=== PATIENT | male | born 1965 | race Two or more races ===

== ENCOUNTER 2017-10-20 13:23 | Observation (INO) | payer BC, OTHER ==
[~2017-10-20] VITALS: Ht 175.3 cm; Wt 84.0 kg
[~2017-10-20 13:23] MED LIST: ASPI-516 CHEW; LISI-519 PO; ROSU20 PO
[2017-10-20 13:24] VITALS: BP 154/67; PULSE 78; TEMP 97.7; O2SAT 98
[2017-10-20] MEDS ORDERED: SODIUM CHLOR 0.9% 1000 ML INJ 1,000 ML IV ONE (13:52)
--- NOTE | 2017-10-20 13:52 | PD ---
HPI Chief Complaint: General Weakness Time Seen by Provider: 13:42 Travel History International Travel<30 days: No Contact w/Intl Traveler<30days: No Traveled to known affect area: No History of Present Illness HPI 51-year-old male with history of hypertension presents to emergency department for evaluation of her palpitations, "skipped beats", and sensation of lightheadedness. Patient was seen and evaluated in [facility] a last evening for similar symptoms except he was not having significant lightheadedness at that time. He was discharged follow-up with a simonizer for Holter monitor placement. Patient states that the day he has had more frequent skipped beats and he is experiencing lightheadedness. He has not actually syncopized. Denies any pain. Denies any nausea. Occasional shortness of breath. Patient has no other symptoms reported this time. PFSH Past Medical History Heart Rhythm Problems: Yes (SKIPPED BEATS) High Cholesterol: Yes Diminished Hearing: No Hypertension: Yes Inguinal Hernia: Yes Past Surgical History Cholecystectomy: Yes Social History Alcohol Use: No Tobacco Use: No Substance Use: No Allergies-Medications (Allergen,Severity, Reaction): Coded Allergies: No Known Allergies (Unverified , 10/20/17) Reported Meds & Prescriptions Reported Meds & Active Scripts Active Reported Aspirin 81 Mg Chew 81 Mg CHEW DAILY Crestor (Rosuvastatin Calcium) 20 Mg Tab 20 Mg PO DAILY Lisinopril 5 Mg Tab 5 Mg PO DAILY Review of Systems Except as stated in HPI: all other systems reviewed are Neg Physical Exam Narrative GENERAL: Well-nourished male patient, ambulatory and in no acute distress. SKIN: Focused skin assessment warm/dry. HEAD: Atraumatic. Normocephalic. EYES: Pupils equal and round. No scleral icterus. No injection or drainage. ENT: No nasal bleeding or discharge. Mucous membranes pink and moist. NECK: Trachea midline. No JVD. CARDIOVASCULAR: Regular rate and rhythm. No murmur appreciated. RESPIRATORY: No accessory muscle use. Clear to auscultation. Breath sounds equal bilaterally. GASTROINTESTINAL: Abdomen soft, non-tender, nondistended. Hepatic and splenic margins not palpable. MUSCULOSKELETAL: No obvious deformities. No clubbing. No cyanosis. No edema. NEUROLOGICAL: Awake and alert. No obvious cranial nerve deficits. Motor grossly within normal limits. Normal speech. PSYCHIATRIC: Appropriate mood and affect; insight and judgment normal. Data Data Last Documented VS Vital Signs Date Time Temp Pulse Resp B/P (MAP) Pulse Ox O2 Delivery O2 Flow Rate FiO2 10/20/17 15:20 71 120/63 (82) 59 117/80 (92) 70 119/83 (95) 10/20/17 14:14 96 Room Air 10/20/17 13:24 97.7 Orders Orders Electrocardiogram (10/20/17 13:52) Basic Metabolic Panel (Bmp) (10/20/17 13:52) Complete Blood Count With Diff (10/20/17 13:52) Ckmb (Isoenzyme) Profile (10/20/17 13:52) Troponin I (10/20/17 13:52) Act Partial Throm Time (Ptt) (10/20/17 13:52) Prothrombin Time / Inr (Pt) (10/20/17 13:52) Ecg Monitoring (10/20/17 13:52) Iv Access Insert/Monitor (10/20/17 13:52) Oximetry (10/20/17 13:52) Sodium Chloride 0.9% Flush (Ns Flush) (10/20/17 14:00) Sodium Chlor 0.9% 1000 Ml Inj (Ns 1000 M (10/20/17 13:52) Orthostatic Vital Signs (10/20/17 13:52) CKMB (10/20/17 14:06) CKMB% (10/20/17 14:06) Admit Order (Ed Use Only) (10/20/17 15:21) Labs Laboratory Tests Test 10/20/17 14:06 White Blood Count 6.2 TH/MM3 Red Blood Count 4.85 MIL/MM3 Hemoglobin 15.1 GM/DL Hematocrit 44.4 % Mean Corpuscular Volume 91.5 FL Mean Corpuscular Hemoglobin 31.1 PG Mean Corpuscular Hemoglobin Concent 33.9 % Red Cell Distribution Width 13.0 % Platelet Count 197 TH/MM3 Mean Platelet Volume 8.2 FL Neutrophils (%) (Auto) 50.5 % Lymphocytes (%) (Auto) 34.7 % Monocytes (%) (Auto) 10.7 % Eosinophils (%) (Auto) 3.6 % Basophils (%) (Auto) 0.5 % Neutrophils # (Auto) 3.1 TH/MM3 Lymphocytes # (Auto) 2.1 TH/MM3 Monocytes # (Auto) 0.7 TH/MM3 Eosinophils # (Auto) 0.2 TH/MM3 Basophils # (Auto) 0.0 TH/MM3 CBC Comment DIFF FINAL Differential Comment Prothrombin Time 10.7 SEC Prothromb Time International Ratio 1.1 RATIO Activated Partial Thromboplast Time 28.5 SEC Blood Urea Nitrogen 15 MG/DL Creatinine 1.02 MG/DL Random Glucose 113 MG/DL Calcium Level 8.6 MG/DL Sodium Level 138 MEQ/L Potassium Level 4.2 MEQ/L Chloride Level 105 MEQ/L Carbon Dioxide Level 25.2 MEQ/L Anion Gap 8 MEQ/L Estimat Glomerular Filtration Rate 76 ML/MIN Total Creatine Kinase 194 U/L Creatine Kinase MB 1.2 NG/ML Troponin I LESS THAN 0.02 NG/ML MDM Medical Decision Making Medical Screen Exam Complete: Yes Emergency Medical Condition: Yes Medical Record Reviewed: Yes Differential Diagnosis Syncope versus near-syncope versus electrolyte abnormality versus arrhythmia Narrative Course 51-year-old male presents to emergency department for evaluation. Patient appears without distress. His vital signs are stable. On the monitor patient is having frequent PVCs, however EKG is normal sinus rhythm. It is reviewed by my attending physician. Laboratory Tests Test 10/20/17 14:06 White Blood Count 6.2 TH/MM3 Red Blood Count 4.85 MIL/MM3 Hemoglobin 15.1 GM/DL Hematocrit 44.4 % Mean Corpuscular Volume 91.5 FL Mean Corpuscular Hemoglobin 31.1 PG Mean Corpuscular Hemoglobin Concent 33.9 % Red Cell Distribution Width 13.0 % Platelet Count 197 TH/MM3 Mean Platelet Volume 8.2 FL Neutrophils (%) (Auto) 50.5 % Lymphocytes (%) (Auto) 34.7 % Monocytes (%) (Auto) 10.7 % Eosinophils (%) (Auto) 3.6 % Basophils (%) (Auto) 0.5 % Neutrophils # (Auto) 3.1 TH/MM3 Lymphocytes # (Auto) 2.1 TH/MM3 Monocytes # (Auto) 0.7 TH/MM3 Eosinophils # (Auto) 0.2 TH/MM3 Basophils # (Auto) 0.0 TH/MM3 CBC Comment DIFF FINAL Differential Comment Prothrombin Time 10.7 SEC Prothromb Time International Ratio 1.1 RATIO Activated Partial Thromboplast Time 28.5 SEC Blood Urea Nitrogen 15 MG/DL Creatinine 1.02 MG/DL Random Glucose 113 MG/DL Calcium Level 8.6 MG/DL Sodium Level 138 MEQ/L Potassium Level 4.2 MEQ/L Chloride Level 105 MEQ/L Carbon Dioxide Level 25.2 MEQ/L Anion Gap 8 MEQ/L Estimat Glomerular Filtration Rate 76 ML/MIN Total Creatine Kinase 194 U/L Creatine Kinase MB 1.2 NG/ML Troponin I LESS THAN 0.02 NG/ML Lab work is reviewed without acute concern. I discussed the patient my attending physician. Patient will benefit from 23 observation for further evaluation of near-syncope. PAtient is in agreement with this plan of care. Diagnosis Primary Impression: Near syncope Additional Impression: Palpitation Admitting Information Admitting Physician Requests: Observation Condition: Stable Irma Rucker Oct 20, 2017 13:51
[2017-10-20] MEDS ORDERED: SODIUM CHLORIDE 0.9% FLUSH 10 ML FLUSH IVF PRN (14:00)
[2017-10-20 14:14] VITALS: O2SAT 96
[2017-10-20 14:25] LABS: AUTOMATED NEUTROPHIL # 3.1 TH/MM3 (1.8-7.7); BASOPHIL % 0.5 % (0.0-2.0); EOSINOPHIL # 0.2 TH/MM3 (0-0.4); EOSINOPHIL % 3.6 % (0.0-4.0); HEMATOCRIT 44.4 % (39.0-51.0); HEMOGLOBIN 15.1 GM/DL (13.0-17.0); LYMPH % 34.7 % (9.0-44.0); LYMPHOCYTE # 2.1 TH/MM3 (1.0-4.8); MEAN CELL VOLUME 91.5 FL (80.0-100.0); MEAN CORPUSCULAR HEMOGLOBIN 31.1 PG (27.0-34.0); MEAN CORPUSCULAR HGB CONC 33.9 % (32.0-36.0); MEAN PLATELET VOLUME 8.2 FL (7.0-11.0); MONO % 10.7 % (0.0-8.0); MONOCYTE # 0.7 TH/MM3 (0-0.9); NEUT % 50.5 % (16.0-70.0); PLATELET COUNT 197 TH/MM3 (150-450); RED BLOOD COUNT 4.85 MIL/MM3 (4.50-5.90); WHITE BLOOD COUNT 6.2 TH/MM3 (4.0-11.0)
[2017-10-20 14:33] LABS: INTERNATIONAL NORMALIZED RATIO 1.1 RATIO; PROTHROMBIN TIME - PATIENT 10.7 SEC (9.8-11.6)
[2017-10-20 14:41] LABS: BICARBONATE 25.2 MEQ/L (21.0-32.0); BLOOD UREA NITROGEN 15 MG/DL (7-18); CALCIUM 8.6 MG/DL (8.5-10.1); CHLORIDE 105 MEQ/L (98-107); CREATININE 1.02 MG/DL (0.60-1.30); GLOMERULAR FILTRATION RATE 76 ML/MIN (>89); GLUCOSE,RANDOM 113 MG/DL (74-106); SODIUM (NA) 138 MEQ/L (136-145)
[2017-10-20 14:46] LABS: TROPONIN I LESS THAN 0.02 NG/ML (0.02-0.05)
[2017-10-20 15:20] VITALS: BP_SYST 117; BP_SYST 119; BP_SYST 120; BP_DIAS 63; BP_DIAS 80; BP_DIAS 83
--- NOTE | 2017-10-20 15:31 | HHI.HP ---
[facility] Service Family Medicine Primary Care Physician Epifanio Acuña MD Admission Diagnosis near syncope; palpitations Diagnoses: Chief Complaint: weakness International Travel<30 Days: No Contact w/Intl Traveler<30days: No History of Present Illness 50-year-old male with history of hypertension, hyperlipidemia presents today for weakness and fatigue. Patient was seen at the [facility] [place] yesterday, for fatigue and dizziness. He is also been noticing skipped beats recently. He states they worsened yesterday. States he felt them very frequently. Denies any chest pain with the palpitations. Yesterday in the ED, she was given the option of coming in for observation or going home and following up with his type cutter. He opted to go home, and he said since then he was very lightheaded and had palpitations overnight. He states the lightheadedness doesn' t change with position. Denies any dizziness or room spinning sensations. He states the lightheadedness is worse when he is walking. Denies any edema. Denies any loss of consciousness. He states he had diarrhea 6 or 7 days ago, that has resolved. Also had bronchitis last month as well. He states he may be a little dehydrated. This all started about 1 week ago, when he was short of breath and dizzy after playing basketball. He says since then, he's had some exercise-induced shortness of breath. He has been exercising more this week, quitting biking and playing basketball. He states he usually just walks and has increased his exercise. He states he has been working more recently as well. Denies any shortness of breath at rest, denies any nausea/vomiting, fever/ chills. He has a history of hypertension, and takes lisinopril. Also history of hyperlipidemia, takes Crestor. Also takes baby aspirin, CoQ10, and vitamin C at home. Of note, he had an exercise stress test done in 2016, which showed some ischemic changes. He also had a thallium scan, which showed ischemic changes in his inferior wall. At that point, he was offered a cardiac catheterization, he declined and did a CT angiogram, which was negative. His PCP is Dr. Stevens. His type cutter is Dr. De La Cruz. Review of Systems Constitutional: COMPLAINS OF: Weight gain, DENIES: Fever, Weight loss, Chills, Night Sweats Eyes: DENIES: Vision loss Ears, nose, mouth, throat: DENIES: Hearing loss, Running Nose, Epistaxis, Sinus Pain Respiratory: COMPLAINS OF: Shortness of breath, DENIES: Apneas, Cough Cardiovascular: COMPLAINS OF: Palpitations, Dyspnea on Exertion, DENIES: Chest pain, Syncope, Lower Extremity Edema Gastrointestinal: DENIES: Abdominal pain, Black stools, Bloody stools, Constipation, Diarrhea, Nausea, Vomiting Genitourinary: DENIES: Urinary incontinence, Urgency, Hematuria, Dysuria, Nocturia Integumentary: DENIES: Rash Hematologic/lymphatic: DENIES: Bruising, Lymphadenopathy Neurologic: DENIES: Abnormal gait, Headache, Localized weakness, Paresthesias, Seizures Psychiatric: DENIES: Anxiety, Confusion, Mood changes, Depression Past Family Social History Past Medical History HTN HLD Past Surgical History Left inguinal hernia-2004 Cholecystectomy-2015 Reported Medications Reported Meds & Active Scripts Active Reported Aspirin 81 Mg Chew 81 Mg CHEW DAILY Crestor (Rosuvastatin Calcium) 20 Mg Tab 20 Mg PO DAILY Lisinopril 5 Mg Tab 5 Mg PO DAILY Allergies: Coded Allergies: No Known Allergies (Unverified , 10/20/17) Active Ordered Medications Active Medications Sodium Chloride 1,000 ml @ 1,000 mls/hr Q1H ONCE IV Last administered on at 14:14; Admin Dose 1,000 MLS/HR; Start 10/20/17 at 13:52; Stop 10/20/17 at 14:51; Status DC Sodium Chloride (NS Flush) 2 ml UNSCH PRN IVF; Start 10/20/17 at 14:00 Family History Father-Alzheimers, HTN Mother-HTN, CF Cousin with colon cancer Social History Lives at home with , 2 children He does acupuncture. Tobacco-denies Alcohol-denies Illicit drug use-denies Physical Exam Vital Signs Vital Signs Date Time Temp Pulse Resp B/P (MAP) Pulse Ox O2 Delivery O2 Flow Rate FiO2 10/20/17 15:20 71 120/63 (82) 59 117/80 (92) 70 119/83 (95) 10/20/17 14:14 96 Room Air 10/20/17 13:24 97.7 78 154/67 (96) 98 Room Air Physical Exam GENERAL: This is a well-nourished, well-developed patient, in no apparent distress. SKIN: No rashes, ecchymoses or lesions. Cool and dry. HEAD: Atraumatic. Normocephalic. No temporal or scalp tenderness. EYES: Pupils equal round and reactive. Extraocular motions intact. No scleral icterus. No injection or drainage. ENT: Throat without erythema, tonsillar hypertrophy or exudate. Uvula midline. Airway patent. NECK: Trachea midline. No JVD or lymphadenopathy. Supple, nontender. CARDIOVASCULAR: Regular rate. Irregular rhythm heard, PVCs appreciated. No murmurs. RESPIRATORY: Clear to auscultation. Breath sounds equal bilaterally. No wheezes , rales, or rhonchi. GASTROINTESTINAL: Abdomen soft, non-tender, nondistended. No hepato-splenomegaly , or palpable masses. No guarding. MUSCULOSKELETAL: Extremities without clubbing, cyanosis, or edema. No joint tenderness, effusion, or edema noted. No calf tenderness. NEUROLOGICAL: Awake and alert. Cranial nerves II through XII intact. Motor and sensory grossly within normal limits. Normal speech. Laboratory Laboratory Tests Test 10/20/17 14:06 White Blood Count 6.2 Red Blood Count 4.85 Hemoglobin 15.1 Hematocrit 44.4 Mean Corpuscular Volume 91.5 Mean Corpuscular Hemoglobin 31.1 Mean Corpuscular Hemoglobin Concent 33.9 Red Cell Distribution Width 13.0 Platelet Count 197 Mean Platelet Volume 8.2 Neutrophils (%) (Auto) 50.5 Lymphocytes (%) (Auto) 34.7 Monocytes (%) (Auto) 10.7 Eosinophils (%) (Auto) 3.6 Basophils (%) (Auto) 0.5 Neutrophils # (Auto) 3.1 Lymphocytes # (Auto) 2.1 Monocytes # (Auto) 0.7 Eosinophils # (Auto) 0.2 Basophils # (Auto) 0.0 CBC Comment DIFF FINAL Differential Comment Prothrombin Time 10.7 Prothromb Time International Ratio 1.1 Activated Partial Thromboplast Time 28.5 Blood Urea Nitrogen 15 Creatinine 1.02 Random Glucose 113 Calcium Level 8.6 Sodium Level 138 Potassium Level 4.2 Chloride Level 105 Carbon Dioxide Level 25.2 Anion Gap 8 Estimat Glomerular Filtration Rate 76 Total Creatine Kinase 194 Creatine Kinase MB 1.2 Troponin I LESS THAN 0.02 Result Diagram: 10/20/17 1406 10/20/17 1406 Caprini VTE Risk Assessment Caprini VTE Risk Assessment: No/Low Risk (score <= 1) Caprini Risk Assessment Model Point Value = 1 Point Value = 2 Point Value = 3 Point Value = 5 Age 41-60 Minor surgery BMI > 25 kg/m2 Swollen legs Varicose veins or History of unexplained or recurrent spontaneous Oral contraceptives or hormone replacement Sepsis (< 1 month) Serious lung disease, including pneumonia (< 1 month) Abnormal pulmonary function Acute myocardial infarction Congestive heart failure (< 1 month) History of inflammatory bowel disease Medical patient at bed rest Age 61-74 Arthroscopic surgery Major open surgery (> 45 min) Laparoscopic surgery (> 45 min) Malignancy Confined to bed (> 72 hours) Immobilizing plaster cast Central venous access Age >= 75 History of VTE Family history of VTE Factor V Leiden Prothrombin [id number] Lupus anticoagulant Anticardiolipin antibodies Elevated serum homocysteine Heparin-induced thrombocytopenia Other congenital or acquired thrombophilia Stroke (< 1 month) Elective arthroplasty Hip, pelvis, or leg fracture Acute spinal cord injury (< 1 month) Prophylaxis Regimen Total Risk Factor Score Risk Level Prophylaxis Regimen 0-1 Low Early ambulation 2 Moderate Order ONE of the following: *Sequential Compression Device (SCD) *Heparin 5000 units SQ BID 3-4 Higher Order ONE of the following medications: *Heparin 5000 units SQ TID *Enoxaparin/Lovenox 40 mg SQ daily (WT < 150 kg, CrCl > 30 mL/min) *Enoxaparin/Lovenox 30 mg SQ daily (WT < 150 kg, CrCl > 10-29 mL/min) *Enoxaparin/Lovenox 30 mg SQ BID (WT < 150 kg, CrCl > 30 mL/min) AND/OR *Sequential Compression Device (SCD) 5 or more Highest Order ONE of the following medications: *Heparin 5000 units SQ TID (Preferred with Epidurals) *Enoxaparin/Lovenox 40 mg SQ daily (WT < 150 kg, CrCl > 30 mL/min) *Enoxaparin/Lovenox 30 mg SQ daily (WT < 150 kg, CrCl > 10-29 mL/min) *Enoxaparin/Lovenox 30 mg SQ BID (WT < 150 kg, CrCl > 30 mL/min) AND *Sequential Compression Device (SCD) Assessment and Plan Assessment and Plan 51 y/o male with hx of HTN, HLD presents with palpitations and lightheadedness. Will admit for workup. Code Status Full Discussed Condition With Irma Rucker Problem List: (1) Palpitation ICD Codes: R00.2 - Palpitations Status: Acute Plan: Patient presents with palpitations. PVCs seen on telemetry, none on EKG on admission. Was seen yesterday in [facility], discharge with outpatient follow-up. Returns with increasing frequency of palpitations as well as lightheadedness. CBC and BMP within normal limits. Troponin less than 0.02. Orthostatic vital signs within normal limits. Vitals stable. Chart review, shows Echo done in 2005 with 55-65% EF and trivial MR & TR -Admit to observation -Telemetry -Trend troponins and EKG with hx of possible heart disease -2D Echocardiogram -Continue home aspirin -TSH, T4 (2) HTN (hypertension) ICD Codes: I10 - Essential (primary) hypertension Plan: Monitor vitals Continue home Lisinopril (3) HLD (hyperlipidemia) ICD Codes: E78.5 - Hyperlipidemia, unspecified Plan: Continue home Crestor (4) FEN Status: Acute Plan: Fluids: Tolerating PO Electrolytes: wnl, continue to monitor Nutrition: regular diet DVT ppx: Early ambulation Problem Qualifiers (1) HTN (hypertension): Qualified Codes: I10 - Essential (primary) hypertension (2) HLD (hyperlipidemia): Qualified Codes: E78.2 - Mixed hyperlipidemia Byron Estrada MD Oct 20, 2017 15:31
[2017-10-20] MEDS ORDERED: ONDANSETRON HCL 4 MG/2 ML VIAL IVP PRN (16:00)
[2017-10-20] MEDS ORDERED: ACETAMINOPHEN 325 MG TAB PO PRN (16:00)
[2017-10-20] MEDS ORDERED: NALOXONE HCL 0.4 MG/ML AMP IV PUSH PRN (16:00)
[2017-10-20] MEDS ORDERED: SODIUM CHLORIDE 0.9% FLUSH 10 ML FLUSH IV FLUSH PRN (16:00)
[2017-10-20] MEDS ORDERED: LISI-519 PO (16:04)
--- NOTE | 2017-10-20 17:06 | EKG ---
Date Performed: 10/20/2017 Time Performed: 14:32:29 PTAGE: 51 years EKG: Sinus rhythm NORMAL ECG NO PREVIOUS TRACING DOCTOR: Alberto Dos Santos Interpretating Date/Time 10/20/2017 17:04:36
[2017-10-20 17:37] VITALS: BP 122/60; PULSE 60; RESP 16; O2SAT 99
[2017-10-20 17:44] LABS: FREE T4 0.9 NG/DL (0.76-1.46)
[2017-10-20 18:06] VITALS: BP 124/66; PULSE 72; RESP 18; TEMP 97.9; O2SAT 96
[2017-10-20 20:00] VITALS: BP 115/68; PULSE 98; RESP 17; TEMP 98.3; O2SAT 81
[2017-10-20] MEDS ORDERED: ROSUVASTATIN CALCIUM 20 MG TAB PO SCH (21:00)
[2017-10-20] MEDS ORDERED: ROSUVASTATIN CALCIUM 20 MG PO SCH (22:45)
[2017-10-20] MEDS: LISINOPRIL 5 MG TAB PO SCH (23:17)
[2017-10-20] MEDS: SODIUM CHLORIDE 0.9% FLUSH 10 ML FLUSH IV FLUSH SCH (23:17)
[2017-10-21] VITALS: BP 112/56; PULSE 62; RESP 17; TEMP 98.5; O2SAT 97
[2017-10-21 02:29] LABS: AUTOMATED NEUTROPHIL # 3.4 TH/MM3 (1.8-7.7); BASOPHIL % 0.5 % (0.0-2.0); EOSINOPHIL # 0.2 TH/MM3 (0-0.4); EOSINOPHIL % 3.5 % (0.0-4.0); HEMATOCRIT 42.7 % (39.0-51.0); HEMOGLOBIN 14.7 GM/DL (13.0-17.0); LYMPH % 33.4 % (9.0-44.0); LYMPHOCYTE # 2.1 TH/MM3 (1.0-4.8); MEAN CELL VOLUME 91.2 FL (80.0-100.0); MEAN CORPUSCULAR HEMOGLOBIN 31.4 PG (27.0-34.0); MEAN CORPUSCULAR HGB CONC 34.5 % (32.0-36.0); MEAN PLATELET VOLUME 7.9 FL (7.0-11.0); MONO % 8.5 % (0.0-8.0); MONOCYTE # 0.5 TH/MM3 (0-0.9); NEUT % 54.1 % (16.0-70.0); PLATELET COUNT 179 TH/MM3 (150-450); RED BLOOD COUNT 4.68 MIL/MM3 (4.50-5.90); RED CELL DISTRIBUTION WIDTH 12.9 % (11.6-17.2); WHITE BLOOD COUNT 6.2 TH/MM3 (4.0-11.0)
[2017-10-21 02:48] LABS: CREATININE 0.89 MG/DL (0.60-1.30)
[2017-10-21 02:49] LABS: BICARBONATE 27.9 MEQ/L (21.0-32.0); CALCIUM 8.3 MG/DL (8.5-10.1)
[2017-10-21 04:00] VITALS: BP 101/51; PULSE 61; RESP 16; TEMP 98; O2SAT 97
--- NOTE | 2017-10-21 06:48 | EKG ---
Date Performed: 10/20/2017 Time Performed: 21:49:14 PTAGE: 51 years EKG: Sinus rhythm WITH OCCASIONAL VENTRICULAR PREMATURE COMPLEXES BORDERLINE ECG NO PREVIOUS TRACING DOCTOR: Alberto Dos Santos Interpretating Date/Time 10/21/2017 06:47:44
[2017-10-21 07:31] VITALS: BP 113/76; PULSE 62; RESP 18; TEMP 98.2; O2SAT 98
[2017-10-21 08:00] VITALS: PULSE 73
[2017-10-21] MEDS: SODIUM CHLORIDE 0.9% FLUSH 10 ML FLUSH IV FLUSH SCH (08:54)
[2017-10-21] MEDS: LISINOPRIL 5 MG TAB PO SCH (08:54)
[2017-10-21] MEDS ORDERED: ATORVASTATIN 40 MG TAB PO SCH (09:00)
[2017-10-21] MEDS ORDERED: ASPIRIN 81 MG CHEW TAB CHEW SCH (09:00)
[2017-10-21] MEDS ORDERED: METOPROLOL TARTRATE 25 MG TAB PO SCH (09:15)
[2017-10-21] MEDS ORDERED: PANTOPRAZOLE SOD 40 MG DELAYED RELEASE TAB PO SCH (09:15)
--- NOTE | 2017-10-21 09:20 | HHI.FPPN ---
Subjective Remarks Patient seen and examined this morning. Afebrile vital signs stable. No acute events overnight. He reports that he still felt some of his PVCs. He understands that once he starts noticing them he tends to keep noticing them which is causing him some stress. He is glad that there is currently no sign of damage to his heart, and that PVCs are normal events. He agrees to restarting his omeprazole as stomach issues can make it easier to notice PVCs, he also agrees to the plan of starting metoprolol in order to help decrease the PVCs. (Ismael Carbajal MD, R3) Objective Vitals Vital Signs Date Time Temp Pulse Resp B/P (MAP) Pulse Ox O2 Delivery O2 Flow Rate FiO2 10/21/17 07:31 98.2 62 18 113/76 (88) 98 10/21/17 04:00 98.0 61 16 101/51 (68) 97 10/21/17 00:00 98.5 62 17 112/56 (74) 97 10/20/17 20:00 98.3 98 17 115/68 (84) 81 10/20/17 18:06 97.9 72 18 124/66 (85) 96 10/20/17 17:37 60 16 122/60 (80) 99 Room Air 10/20/17 17:35 10/20/17 15:20 71 120/63 (82) 59 117/80 (92) 70 119/83 (95) 10/20/17 14:14 96 Room Air 10/20/17 13:24 97.7 78 154/67 (96) 98 Room Air I/O 10/20/17 10/20/17 10/20/17 10/21/17 10/21/17 10/21/17 07:00 15:00 23:00 07:00 15:00 23:00 Intake Total 1240 ml Balance 1240 ml Intake Oral 240 ml IV Total 1000 ml # Voids 3 (Ismael Carbajal MD, R3) Result Diagram: 10/21/1713810/21/17138 Objective Remarks GEN: Well-developed, well-nourished patient. No acute distress. CV: Regular rate and rhythm without obvious murmurs, occasional skipped beat noted LUNGS: Clear to auscultation bilaterally. Normal respiratory effort. No wheezes , rales, rhonchi. GI: Soft, nontender, nondistended. No palpable masses. Bowel sounds WNL. EXT: No edema. NEURO/PSYCH: Afocal. Awake, alert, and oriented x3. Appropriate insight and judgment. Medications and IVs Current Medications Medications (Trade) Dose Ordered Sig/Sunil Route Start Time Stop Time Status Last Admin (NS Flush) 2 ml UNSCH PRN IVF 10/20/17 14:00 (NS Flush) 2 ml UNSCH PRN IV FLUSH 10/20/17 16:00 (NS Flush) 2 ml BID IV FLUSH 10/20/17 21:00 10/21/17 08:54 (Tylenol) 650 mg Q4H PRN PO 10/20/17 16:00 (Zofran Inj) 4 mg Q6H PRN IVP 10/20/17 16:00 (Narcan Inj) 0.4 mg UNSCH PRN IV PUSH 10/20/17 16:00 (Aspirin Chew) 81 mg DAILY CHEW 10/21/17 09:00 10/21/17 08:54 (Prinivil) 5 mg BID PO 10/20/17 21:00 10/21/17 08:54 Patient Own Medication PT OWN MED: PT OWN ROSUVASTA... HS PO 10/20/17 22:45 10/20/17 23:20 (Lopressor) 25 mg Q12HR PO 10/21/17 09:15 (Protonix) 40 mg DAILY PO 10/21/17 09:15 (Ismael Carbajal MD, R3) A/P Assessment and Plan 51 y/o male with hx of HTN, HLD presents with palpitations and lightheadedness. Workup for heart disease performed, only found to have frequent PVCs, plan to discharge on omeprazole and metoprolol. Discharge Planning Discharge home today (Ismael Carbajal MD, R3) Attending Attestation Round table with Dr Carbajal,DR Estrada, Dr Garnica and Dr Mendoza about patients admission was discussed in detail EMR reviewed Patient seen and examination performed Agre with Assessment and Plan and above documentation See Orders (Wilber Sevilla MD) Problem List: (1) Frequent PVCs ICD Codes: I49.3 - Ventricular premature depolarization Plan: Frequent PVCs seen on telemetry. EKG is within normal limits. Troponins trended out negative. Plan to discharge home today -Admit to observation -Start metoprolol 25 mg twice daily -Restarted patient on a proton pump inhibitor -Telemetry: Showing PVCs -Continue home aspirin -TSH, T4: Within normal limits (2) HTN (hypertension) ICD Codes: I10 - Essential (primary) hypertension Plan: Monitor vitals Continue home Lisinopril Will add Metoprol for treatment of PVCs (3) HLD (hyperlipidemia) ICD Codes: E78.5 - Hyperlipidemia, unspecified Plan: Continue home Crestor (4) FEN Status: Acute Plan: Fluids: Tolerating PO Electrolytes: wnl, continue to monitor Nutrition: regular diet DVT ppx: Early ambulation (Ismael Carbajal MD, R3) Problem Qualifiers (1) HTN (hypertension): Qualified Codes: I10 - Essential (primary) hypertension (2) HLD (hyperlipidemia): Qualified Codes: E78.2 - Mixed hyperlipidemia Ismael Carbajal MD, R3 Oct 21, 2017 09:20 Wilber Sevilla MD Oct 21, 2017 19:37
[2017-10-21] MEDS ORDERED: OMEP20TA93 PO (10:12)
[2017-10-21] MEDS ORDERED: METO25TA3 PO (10:12)
--- NOTE | 2017-10-21 10:13 | HHI.DCPOC ---
Discharge Care Plan Diagnosis: (1) Frequent PVCs (2) Palpitation (3) HLD (hyperlipidemia) (4) HTN (hypertension) Goals to Promote Your Health * To prevent worsening of your condition and complications * To maintain your health at the optimal level Directions to Meet Your Goals Take your medications as prescribed Follow your dietary instruction Follow activity as directed Keep your appointments as scheduled Take your immunizations and boosters as scheduled If your symptoms worsen call your PCP, if no PCP go to Urgent Care Center or Emergency Room Smoking is Dangerous to Your Health. Avoid second hand smoke Call the 24-hour hour crisis hotline for domestic abuse at Ismael Carbajal MD, R3 Oct 21, 2017 10:13
[2017-10-21 11:51] VITALS: BP 114/67; PULSE 68; RESP 18; TEMP 98.3; O2SAT 97
--- NOTE | 2017-10-21 13:40 | ECHRPT ---
Indication: Syncope and collapse CONCLUSIONS Normal left ventricular size. Moderate concentric left ventricular hypertrophy. The left ventricle is not well visualized. Mild mitral valve regurgitation. There is mild tricuspid valve regurgitation. The estimated pulmonary arterial pressure is 35 mmHg. BP: / HR: Rhythm: Sinus MEASUREMENTS (Male / Female) Normal Values Technical Quality:Good 2D ECHO LV Diastolic Diameter PLAX 4.6 cm 4.2 - 5.9 / 3.9 - 5.3 cm LV Systolic Diameter PLAX 3.4 cm IVS Diastolic Thickness 0.9 cm 0.6 - 1.0 / 0.6 - 0.9 cm LVPW Diastolic Thickness 0.9 cm 0.6 - 1.0 / 0.6 - 0.9 cm LV Relative Wall Thickness 0.4 LVOT Diameter 2.1 cm M-MODE Aortic Root Diameter MM 2.7 cm LA Systolic Diameter MM 2.6 cm LA Ao Ratio MM 1.0 AV Cusp Separation MM 2.0 cm DOPPLER AV Peak Velocity 118.0 cm/s AV Peak Gradient 5.6 mmHg LVOT Peak Velocity 89.3 cm/s LVOT Peak Gradient 3.2 mmHg AV Area Cont Eq pk 2.6 cm MR Peak Velocity 337.5 cm/s MR Peak Gradient 45.6 mmHg Mitral E Point Velocity 66.1 cm/s Mitral A Point Velocity 40.0 cm/s Mitral E to A Ratio 1.7 LV E' Lateral Velocity 16.3 cm/s Mitral E to LV E' Lateral Ratio 4.1 LV E' Septal Velocity 9.9 cm/s Mitral E to LV E' Septal Ratio 6.6 TR Peak Velocity 250.0 cm/s TR Peak Gradient 25.0 mmHg Right Atrial Pressure 10.0 mmHg Pulmonary Artery Systolic Pressu 35.0 mmHg Right Ventricular Systolic Press 35.0 mmHg PV Peak Velocity 97.7 cm/s PV Peak Gradient 3.8 mmHg FINDINGS LEFT VENTRICLE Normal left ventricular size. Moderate concentric left ventricular hypertrophy. The left ventricular systolic function is normal with an estimated ejection fraction in the range of 60-65%. The left ventricle is not well visualized. RIGHT VENTRICLE Normal right ventricular size and systolic function. LEFT ATRIUM The left atrial size is normal. RIGHT ATRIUM The right atrial size is normal. ATRIAL SEPTUM Normal atrial septal thickness without atrial level shunting by limited color doppler interrogation. AORTA The aortic root and proximal ascending aorta are normal in size on limited imaging. MITRAL VALVE Mild mitral valve regurgitation. Structurally normal mitral valve. AORTIC VALVE Trileaflet aortic valve. No aortic valve stenosis or regurgitation. TRICUSPID VALVE There is mild tricuspid valve regurgitation. The estimated pulmonary arterial pressure is 35 mmHg. Structurally normal tricuspid valve. PULMONARY VALVE No pulmonary valve regurgitation or stenosis. VESSELS The inferior vena cava is normal in size. PERICARDIUM No pericardial effusion. Cristhian Joyner MD, FACC (Electronically Signed) Final Date:21 October 2017 13:39
== END 2017-10-21 13:33 | disposition home or self-care (01) ==
LOC: NEPE 13:23 → NEDA 15:22 → NEPGCP 16:49
PROVIDERS: ADMIT Family Medicine; ATTEND Family Medicine
DX: R00.2 Palpitations (principal); I10 Essential (primary) hypertension; E78.2 Mixed hyperlipidemia; I49.3 Ventricular premature depolarization; R42 Dizziness and giddiness; R06.02 Shortness of breath; K40.90 Unilateral inguinal hernia, without obstruction or gangrene, not specified as recurrent; Z79.899 Other long term (current) drug therapy; R53.1 Weakness
CPT/HCPCS: 80048; 80307; 82550; 82552; 84439; 84443; 84484; 85025; 85610; 85730; 93005; 93306; 96360; 96361; 99285; G0378; J7030